=== PATIENT | male | born 1955 | race Caucasian/White ===

== ENCOUNTER 2018-09-19 16:17 | Inpatient (IN) | payer BC, MEDICARE ==
[2018-09-19 18:05] VITALS: BMI 28.8
[2018-09-19] MEDS ORDERED: FLUTICASONE 50MCG/SPRAY NASAL 16GM EA NOSTRIL PRN (19:22)
[2018-09-19] MEDS ORDERED: ACETAMINOPHEN TAB 325 MG TAB PO PRN (19:24)
[2018-09-19] MEDS: ASPIRIN 81 MG PO SCH (19:58)
[2018-09-19] MEDS: clonazePAM 0.5 MG TAB PO PRN (19:59)
[2018-09-19] MEDS: LISINOPRIL-HCTZ 20-12.5 MG 1 EACH TAB PO SCH (20:03)
[2018-09-19] MEDS: CYCLOBENZAPRINE 5 MG TAB PO PRN (20:03)
[2018-09-19 20:21] LABS: Anion Gap 6 mmol/L; Blood Urea Nitrogen 14 mg/dL (9-20); Calcium 9.3 mg/dL (8.4-10.2); Carbon Dioxide 31 mmol/L (22-30); Chloride 102 mmol/L (98-107); Glucose 100 mg/dL (74-99); Potassium 3.8 mmol/L (3.5-5.1); Sodium 139 mmol/L (137-145)
[2018-09-20] MEDS: SODIUM CHLORIDE 0.9% 1,000 ML IV SCH ×3 (03:23→17:19)
[2018-09-20 07:04] LABS: HCT 49.3 % (39.0-53.0); HGB 15.7 gm/dL (13.0-17.5); MCH 29.3 pg (25.0-35.0); MCHC 31.9 g/dL (31.0-37.0); MCV 91.9 fL (80.0-100.0); Mean Platelet Volume 8.3; Platelet Count 229 k/uL (150-450); RBC 5.36 m/uL (4.30-5.90); RDW 14.4 % (11.5-15.5); WBC 5.3 k/uL (3.8-10.6)
[2018-09-20 07:34] LABS: Anion Gap 8 mmol/L; Blood Urea Nitrogen 13 mg/dL (9-20); Calcium 9.2 mg/dL (8.4-10.2); Carbon Dioxide 31 mmol/L (22-30); Chloride 102 mmol/L (98-107); Glucose 97 mg/dL (74-99); Potassium 4.4 mmol/L (3.5-5.1); Sodium 141 mmol/L (137-145)
[2018-09-20] MEDS ORDERED: TEMAZEPAM 15 MG CAP PO PRN (11:34)
[2018-09-20] MEDS ORDERED: NITROGLYCERIN SL TABS 0.4 MG TAB SUBLINGUAL PRN (12:39)
--- NOTE | 2018-09-20 12:41 | P.CRDCN ---
History of Present Illness Consult date: 09/20/18 Requesting physician: Chet Hawkins Consult reason: chest pain Chief complaint: Chest pain History of present illness: This is a pleasant 63-year-old gentleman who has history of hyperte nsion, nondiabetic, unsure about his cholesterol, nonsmoker, who presented to [facility] with symptoms of midsternal chest pressure and heaviness. According to the patient, for the past 3 weeks or so when he exerts himself he gets chest tightness with some radiation up into his jaw. He does get associated shortness of breath as well. He also states that the symptoms come on when he is under a significant amount of stress. He has a very stressful job, and is working to try and change his employment. Patient does take Zestoretic at home, he was noted at [facility] to have a low sodium of 121. Because of the symptoms of chest discomfort and associated hyponatremia patient was recommended to be transferred to [facility] for further evaluation and treatment. EKG performed at [facility] showed a normal sinus rhythm with nonspecific ST-T wave changes in the anterior leads. Chest x-ray did not reveal any abnormality. Sodium there was 121, potassium 3.6, chloride 94, CO2 29, BUN 15 and creatinine 1.1. AST ALT normal BNP normal white blood cell count 8.3, hemoglobin 15.7, platelet count 209. On arrival here and EKG was performed, Which showed a normal sinus rhythm with nonspecific ST-T wave changes in the anterior leads, subsequent EKG showed normal sinus rhythm. Sodium 141, potassium 4.4, BUN 13 and creatinine 0.8. Initial troponin performed here 0.012. White blood cell count 5.3, hemoglobin 15.7, platelet count 229. Blood pressure 132/80 with a heart rate in the 60s to 70s, 99% on room air. At time of my examination this morning, patient is complaining of some mild midsternal chest pressure, we will obtain a repeat EKG at this time and give the patient a sublingual nitroglycerin. Past Medical History Past Medical History: Hypertension, Sleep Apnea/CPAP/BIPAP History of Any Multi-Drug Resistant Organisms: None Reported Past Surgical History: Tonsillectomy Past Anesthesia/Blood Transfusion Reactions: No Reported Reaction Past Psychological History: ADD/ADHD, Depression Smoking Status: Former smoker - Past Family History Father Family Medical History: Dementia Mother Family Medical History: Myocardial Infarction ([place]) Medications and Allergies Home Medications Medication Instructions Recorded Confirmed Type Aspirin EC [Ecotrin Low Dose] 81 mg PO HS 09/19/18 09/19/18 History Cyclobenzaprine [Flexeril] 5 mg PO BID PRN 09/19/18 09/19/18 History Fluticasone Nasal [place] [Flonase 2 spr EA NOSTRIL DAILY PRN 09/19/18 09/19/18 History Nasal [place]] Lisinopril-Hctz 20-12.5 mg 1 tab PO HS 09/19/18 09/19/18 History [Zestoretic 20-12.5] clonazePAM [KlonoPIN] 0.5 mg PO BID PRN 09/19/18 09/19/18 History Allergies Allergy/AdvReac Type Severity Reaction Status Date / Time No Known Allergies Allergy Verified 09/19/18 18:55 Physical Exam Vitals: Vital Signs Temp Pulse Resp BP Pulse Ox 09/20/18 12:00 97.8 F 71 18 135/83 100 09/20/18 08:00 98.0 F 68 18 132/86 99 09/20/18 03:33 97.8 F 72 18 122/77 94 L 09/19/18 23:54 98.2 F 80 18 132/78 96 09/19/18 20:00 96.9 F L 88 18 135/87 97 09/19/18 17:51 68 16 130/86 98 Intake and Output 09/19/18 09/20/18 09/20/18 22:59 06:59 14:59 Output Total 650 Balance -650 Output: Urine 650 Other: # Voids 1 Weight 83.6 kg 83.2 kg PHYSICAL EXAMINATION: GENERAL: 63-year-old gentleman complaining of mild midsternal chest pressure at the time of my examination HEENT: Head is atraumatic, normocephalic. Pupils equal, round. Sclera anicteric. Conjunctiva are clear. Mucous membranes of the mouth are moist. Neck is supple. There is no elevated jugular venous pressure. No carotid bruit is heard. HEART EXAMINATION: Heart S1, S2 normal. No murmur or gallop heard. CHEST EXAMINATION: Lungs are clear to auscultation and precussion. No chest wall tenderness is noted on palpation or with deep breathing. ABDOMEN: Soft, nontender. Bowel sounds are heard. No organomegaly noted. EXTREMITIES: 2+ peripheral pulses with no evidence of peripheral edema and no calf tenderness noted. NEUROLOGIC patient is awake, alert and oriented 3 . Results 09/20/18 06:19 09/20/18 06:19 Cardiac Enzymes 09/20/18 Range/Units 06:19 Troponin I <0.012 (0.000-0.034) ng/mL CBC 09/20/18 Range/Units 06:19 WBC 5.3 (3.8-10.6) k/uL RBC 5.36 (4.30-5.90) m/uL Hgb 15.7 (13.0-17.5) gm/dL Hct 49.3 (39.0-53.0) % Plt Count 229 (150-450) k/uL Comprehensive Metabolic Panel 09/19/18 09/20/18 Range/Units 19:45 06:19 Sodium 139 141 (137-145) mmol/L Potassium 3.8 4.4 (3.5-5.1) mmol/L Chloride 102 102 (98-107) mmol/L Carbon Dioxide 31 H 31 H (22-30) mmol/L BUN 14 13 (9-20) mg/dL Creatinine 0.90 0.86 (0.66-1.25) mg/dL Glucose 100 H 97 (74-99) mg/dL Calcium 9.3 9.2 (8.4-10.2) mg/dL Current Medications Generic Name Dose Route Start Last Admin Trade Name Freq PRN Reason Stop Dose Admin Acetaminophen 650 mg 09/19/18 19:24 09/19/18 19:58 Tylenol Tab PO 650 mg Q6HR PRN Administration Fever and/ or Pain Alprazolam 0.25 mg 09/20/18 11:34 Xanax PO TID PRN Anxiety Aspirin 81 mg 09/19/18 21:00 09/19/18 19:58 Aspirin PO 81 mg HS ALISSA Administration Clonazepam 0.5 mg 09/19/18 19:22 09/19/18 19:59 Klonopin PO 0.5 mg BID PRN Administration Anxiety Cyclobenzaprine HCl 5 mg 09/19/18 19:22 09/19/18 20:03 Flexeril PO 5 mg BID PRN Administration JAW PAIN Fluticasone Propionate 2 spray 09/19/18 19:22 Flonase Nasal [place] EA NOSTRIL DAILY PRN Allergy Symptoms Lisinopril/HCTZ 1 each 09/19/18 21:00 09/19/18 20:03 Zestoretic 20-12.5 PO 1 each HS ALISSA Administration Heparin Sodium (Porcine) 5,000 unit 09/20/18 21:00 Heparin SQ Q12HR ALISSA Sodium Chloride 1,000 mls @ 20 mls/hr 09/19/18 19:30 09/20/18 06:38 Saline 0.9% IV Not Given .Q24H ALISSA Pantoprazole Sodium 40 mg 09/21/18 07:30 Protonix PO AC-BRKFST ALISSA Temazepam 15 mg 09/20/18 11:34 Restoril PO HS PRN Insomnia Intake and Output 09/19/18 09/20/18 09/20/18 22:59 06:59 14:59 Output Total 650 Balance -650 Output: Urine 650 Other: # Voids 1 Weight 83.6 kg 83.2 kg 09/20/18 06:19 09/20/18 06:19 EKG Interpretations (text) EKG showed a normal sinus rhythm with nonspecific ST-T wave changes noted in the anterior leads. Assessment and Plan Plan: Assessment and plan #1 symptoms of exertional dyspnea and midsternal chest pressure and heaviness with radiation to the jaw, suggestive of possible angina. Troponins times to have been negative. EKG shows a normal sinus rhythm with non-specific ST-T wave changes #2 hypertension #3 hyponatremia, could be secondary to diuretics, resolved. Plan We will obtain an echocardiogram with Doppler study. Discontinue diuretic portion of his Zestoretic and continue CHARMAINE inhibitor only. We will also check a fasting lipid profile. Patient has been advised to undergo further testing to rule out underlying coronary artery disease. It is been recommended the patient undergo cardiac catheterization, the risks and the benefits were explained to the patient in detail, patient does not wish to proceed with cardiac catheterization, he prefers to undergo stress testing. He will be scheduled tomorrow to undergo stress Cardiolite understanding that if the stress test is positive he will require cardiac catheterization, if the test is negative he should be able to be discharged from cardiology's perspective tomorrow. DNP note has been reviewed, I agree with a documented findings and plan of care. Patient was seen and examined.
[2018-09-20] MEDS: ALPRAZolam 0.25 MG TAB PO PRN ×2 (12:54→23:06)
[2018-09-20 13:39] LABS: Cholesterol 217 mg/dL (<200); HDL Cholesterol 50 mg/dL (40-60); LDL Cholesterol,Calculated 128 mg/dL (0-99); Triglycerides 194 mg/dL (<150)
--- NOTE | 2018-09-20 16:16 | ECHOF ---
Referral Reason:chf MEASUREMENTS -------- HEIGHT: 170.2 cm WEIGHT: 83.0 kg BP: IVSd: 0.8 cm (0.6 - 1.1) LVIDd: 3.4 cm (3.9 - 5.3) LVPWd: 1.2 cm (0.6 - 1.1) IVSs: 1.6 cm LVIDs: 1.5 cm LVPWs: 1.9 cm RVIDd: 3.2 cm (< 3.3) LAESV Index (A-L): 25.87 ml/m Ao Diam: 3.6 cm (2.0 - 3.7) LA Diam: 2.7 cm (2.7 - 3.8) AV Cusp: 2.4 cm (1.5 - 2.6) EPSS: 0.6 cm MV E Kannan: 0.54 m/s MV DecT: 204 ms MV A Kannan: 0.80 m/s MV E/A Ratio: 0.68 RAP: 5.00 mmHg RVSP: 14.95 mmHg MV EF SLOPE: 50.15 mm/s (70 - 150) MV EXCURSION: 16.31 mm (> 18.000) FINDINGS -------- Sinus rhythm. This was a technically good study. The left ventricular size is normal. There is borderline concentric left ventricular hypertrophy. Overall left ventricular systolic function is normal with, an EF between 55 - 60 %. The right ventricle is normal in size. The left atrial size is normal. The right atrial size is normal. Interatrial and interventricular septum intact. Aortic valve is trileaflet and is mildly thickened. The mitral valve leaflets are mildly thickened. There is trace mitral regurgitation. Trace tricuspid regurgitation present. The right ventricular systolic pressure, as measured by Dopp ler, is 14.95mmHg. There is no pulmonic regurgitation present. The aortic root size is normal. Normal inferior vena cava with normal inspiratory collapse consistent with estimated right atrial pre ssure of 5 mmHg. There is no pericardial effusion. CONCLUSIONS -------- 1. Sinus rhythm. 2. This was a technically good study. 3. The left ventricular size is normal. 4. There is borderline concentric left ventricular hypertrophy. 5. Overall left ventricular systolic function is normal with, an EF between 55 - 60 %. 6. The right ventricle is normal in size. 7. The left atrial size is normal. 8. The right atrial size is normal. 9. Interatrial and interventricular septum intact. 10. Aortic valve is trileaflet and is mildly thickened. 11. The mitral valve leaflets are mildly thickened. 12. There is trace mitral regurgitation. 13. Trace tricuspid regurgitation present. 14. The right ventricular systolic pressure, as measured by Doppler, is 14.95mmHg. 15. There is no pulmonic regurgitation present. 16. The aortic root size is normal. 17. Normal inferior vena cava with normal inspiratory collapse consistent with estimated right atrial pressure of 5 mmHg. 18. There is no pericardial effusion. [employer]: Tatum Grace RDCS
--- NOTE | 2018-09-20 18:06 | HP ---
HISTORY AND PHYSICAL CHIEF COMPLAINT: Shortness of breath, chest pain. HISTORY OF PRESENT ILLNESS: This 63-year-old gentleman with a past medical history of hypertension, sleep apnea, history of ADD, ADHD, history of depression being followed by primary physician elsewhere has presented to [facility] with complaints of increasing shortness of breath and chest pain which is occurring for the last 1 week. The pain was felt in the anterior part of the chest which was radiating to the left side of the chest, according to him and evaluation in [place] showed some nonspecific ST-T changes. The patient directly transferred to [facility] for further evaluation and treatment. 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 There is no history of fever, rigors or chills. No history of headache, loss of consciousness, seizures. Cardiology evaluation in progress. PAST MEDICAL HISTORY: Hypertension, sleep apnea, history of tonsillectomy, ADHD, history of depression, history of smoking. MEDICATIONS: Home medications are prior to admission: 1. Klonopin 0.5 mg b.i.d. p.r.n. 2. Lisinopril, hydrochlorothiazide 1 tablet p.o. q.h.s. 3. Flonase 2 sprays daily p.r.n. 4. Flexeril 5 mg b.i.d. p.r.n. 5. Ecotrin 81 mg q.h.s. ALLERGIES: None. FAMILY HISTORY: History of dementia in the family. SOCIAL HISTORY: Previous history of smoking. No history of alcohol intake. REVIEW OF SYSTEMS: ENT: No diminished hearing, no diminished vision. CARDIOVASCULAR: As mentioned earlier. RESPIRATORY: As mentioned earlier. GI no nausea or vomiting. no dysuria or hematuria. NERVOUS SYSTEM: No numbness or weakness. ALLERGY/IMMUNOLOGY: No asthma or hayfever. MUSCULOSKELETAL as mentioned earlier. HEMATOLOGY/ONCOLOGY: No history of anemia. ENDOCRINE: No history of diabetes or hypothyroidism. CONSTITUTIONAL: As mentioned earlier. Dermatology: Negative. Rheumatology: Negative. Psychiatry: As mentioned earlier. PHYSICAL EXAMINATION: GENERAL: Alert and oriented x3. VITAL SIGNS: Pulse 71, blood pressure 135/83, respirations 18, temperature 97.8, pulse ox 100 percent on 2 L. HEENT: Conjunctivae normal. NECK: No jugular venous distention. CARDIOVASCULAR: S1, S2 muffled. RESPIRATORY: Breath sounds diminished in the bases. No rhonchi. No crackles. ABDOMEN: Soft, nontender. No mass palpable. LEGS: No edema. No swelling. NERVOUS SYSTEM: Higher functions as mentioned earlier. Moves all 4 limbs. No focal motor or sensory deficits. Lymphatics: No lymph nodes palpable in the neck, axillae or groin. SKIN: No ulcer, rash or bleeding. JOINTS: No active deforming arthropathy. LABS: CBC within normal limits. Otherwise sodium 140, potassium 4.4, triglycerides 194, cholesterol 217. ASSESSMENT: 1. Chest pain, possible unstable angina. 2. Shortness of breath for evaluation. 3. Hyperlipidemia. 4. Hypertension. 5. Sleep apnea. 6. Attention-deficit/hyperactivity disorder. 7. Depression. 8. Social stressors. 9. History of nicotine dependence. RECOMMENDATIONS AND DISCUSSION: In this 63-year-old gentleman who presented with multiple complex medical issues, we will monitor the patient closely. Continue the current medications, management and symptomatic treatment. Rule out myocardial infarction. Otherwise, the patient has some persistent chest pain history. Cardiology consult for cardiac catheterization. We will continue to monitor. A 2D echo has been ordered. Overall prognosis guarded because of multiple complex medical issues. Repeat labs also will be ordered and further recommendations to follow. MMODL / IJN: [id number] / MTDD
[2018-09-20 18:54] LABS: Appearance,Urine Clear (Clear); Bilirubin,Urine Negative (Negative); Blood,Urine Negative (Negative); Color,Urine Yellow; Glucose,Urine (UA) Negative (Negative); Ketones,Urine Negative (Negative); Leukocyte Esterase,Urine Negative (Negative); Nitrite,Urine Negative (Negative); Protein,Urine Negative (Negative); Specific Gravity,Urine 1.015 (1.001-1.035); Urobilinogen,Urine <2.0 mg/dL (<2.0)
[2018-09-20] MEDS: ASPIRIN 81 MG PO SCH (20:29)
[2018-09-20] MEDS: HEPARIN SODIUM,PORCINE 5,000 UNIT/ML 1 ML VIAL SQ SCH (20:29)
[2018-09-20] MEDS: LISINOPRIL-HCTZ 20-12.5 MG 1 EACH TAB PO SCH (20:29)
[2018-09-20 21:18] VITALS: RESP 18
[2018-09-20] MEDS: CYCLOBENZAPRINE 5 MG TAB PO PRN (23:06)
[2018-09-21] MEDS ORDERED: PANTOPRAZOLE 40 MG TABLET PO SCH (07:30)
[2018-09-21 07:44] LABS: Basophils % (A) 1 %; Eosinophils # (A) 0.3 k/uL (0-0.7); Eosinophils % (A) 5 %; HGB 15.5 gm/dL (13.0-17.5); Lymphocytes # (A) 1.6 k/uL (1.0-4.8); Lymphocytes % (A) 28 %; MCH 29.3 pg (25.0-35.0); MCHC 31.6 g/dL (31.0-37.0); MCV 92.6 fL (80.0-100.0); Mean Platelet Volume 8.4; Monocytes # (A) 0.5 k/uL (0-1.0); Monocytes % (A) 8 %; Neutrophils % (A) 53 %; Platelet Count 211 k/uL (150-450); RDW 14.6 % (11.5-15.5); WBC 5.6 k/uL (3.8-10.6)
[2018-09-21 07:55] LABS: Anion Gap 8 mmol/L; Blood Urea Nitrogen 17 mg/dL (9-20); Calcium 9.6 mg/dL (8.4-10.2); Carbon Dioxide 27 mmol/L (22-30); Chloride 103 mmol/L (98-107); Glucose 98 mg/dL (74-99); Potassium 4.5 mmol/L (3.5-5.1); Sodium 138 mmol/L (137-145)
[2018-09-21] MEDS: HEPARIN SODIUM,PORCINE 5,000 UNIT/ML 1 ML VIAL SQ SCH (08:03)
[2018-09-21] MEDS: CYCLOBENZAPRINE 5 MG TAB PO PRN (12:52)
[2018-09-21] MEDS: clonazePAM 0.5 MG TAB PO PRN (12:52)
--- NOTE | 2018-09-21 13:07 | P.PN ---
Subjective Progress Note Date: 09/21/18 This is a pleasant 63-year-old gentleman who has history of hypertension, nondiabetic, unsure about his cholesterol, nonsmoker, who presented to [facility] with symptoms of midsternal chest pressure and heaviness. According to the patient, for the past 3 weeks or so when he exerts himself he gets chest tightness with some radiation up into his jaw. He does get associated shortness of breath as well. He also states that the symptoms come on when he is under a significant amount of stress. He has a very stressful job, and is working to try and change his employment. Patient does take Zestoretic at home, he was noted at [facility] to have a low sodium of 121. Because of the symptoms of chest discomfort and associated hyponatremia patient was recommended to be transferred to [facility] for further evaluation and treatment. EKG performed at [facility] showed a normal sinus rhythm with nonspecific ST-T wave changes in the anterior leads. Chest x- ray did not reveal any abnormality. Sodium there was 121, potassium 3.6, chloride 94, CO2 29, BUN 15 and creatinine 1.1. AST ALT normal BNP normal white blood cell count 8.3, hemoglobin 15.7, platelet count 209. On arrival here and EKG was performed, Which showed a normal sinus rhythm with nonspecific ST-T wave changes in the anterior leads, subsequent EKG showed normal sinus rhythm. Sodium 141, pota ssium 4.4, BUN 13 and creatinine 0.8. Initial troponin performed here 0.012. White blood cell count 5.3, hemoglobin 15.7, platelet count 229. Blood pressure 132/80 with a heart rate in the 60s to 70s, 99% on room air. At time of my examination this morning, patient is complaining of some mild midsternal chest pressure, we will obtain a repeat EKG at this time and give the patient a sublingual nitroglycerin. 09/21/2018 Patient seen and examined this morning, he was advised yesterday by Dr. Doyle to undergo cardiac catheterization, he was hesitant but agreed to have a stress test. A nuclear stress test was ordered for him today, patient refuses to have nuclear agent. Patient then was scheduled to undergo a stress echocardiographic study which will be performed today. Hemodynamically he is stable. Denies any further chest discomfort. Echocardiogram with Doppler study was performed which revealed an EF of 55-60%. Cholesterol 217, LDL 128, HDL 50, triglycerides 194. Objective - Vital Signs Vital signs: Vital Signs Temp 98.2 F 09/21/18 08:07 Pulse 72 09/21/18 08:07 Resp 18 09/21/18 08:07 BP 123/84 09/21/18 08:07 Pulse Ox 98 09/21/18 08:07 Intake & Output 09/20/18 09/21/18 09/21/18 18:59 06:59 18:59 Intake Total 240 480 Balance 240 480 Weight 83.3 kg 83.007 kg Intake: Oral 240 480 Other: # Voids 1 1 2 - Exam PHYSICAL EXAMINATION: GENERAL: 63-year-old gentleman complaining of mild midsternal chest p ressure at the time of my examination HEENT: Head is atraumatic, normocephalic. Pupils equal, round. Sclera anicteric. Conjunctiva are clear. Mucous membranes of the mouth are moist. Neck is supple. There is no elevated jugular venous pressure. No carotid bruit is heard. HEART EXAMINATION: Heart S1, S2 normal. No murmur or gallop heard. CHEST EXAMINATION: Lungs are clear to auscultation and precussion. No chest wall tenderness is noted on palpation or with deep breathing. ABDOMEN: Soft, nontender. Bowel sounds are heard. No organomegaly noted. EXTREMITIES: 2+ peripheral pulses with no evidence of peripheral edema and no calf tenderness noted. NEUROLOGIC patient is awake, alert and oriented 3 - Labs CBC & Chem 7: 09/21/18 06:47 09/21/18 06:47 Labs: Abnormal Lab Results - Last 24 Hours (Table) 09/20/18 Range/Units 06:19 Triglycerides 194 H (<150) mg/dL Cholesterol 217 H (<200) mg/dL LDL Cholesterol, Calc 128 H (0-99) mg/dL Assessment and Plan Plan: Assessment and plan #1 symptoms of exertional dyspnea and midsternal chest pressure and heaviness with radiation to the jaw, suggestive of possible angina. Troponins times to have been negative. EKG shows a normal sinus rhythm with non-specific ST-T wave changes #2 hypertension #3 hyponatremia, could be secondary to diuretics, resolved. #4 hyperlipidemia, untreated Plan Echocardiogram with Doppler study revealed a normal left ventricular systolic function , cholesterol 217, LDL 128, triglycerides 194, HDL 50. Patient on Lipitor 40 today. Await results of stress echocardiographic study. If the stress test is normal patient may be able to be discharged home today. If he has a positive stress test further recommendations then will be made. DNP note has been reviewed, I agree with a documented findings and plan of care. Patient was seen and examined.
--- NOTE | 2018-09-21 13:12 | ECHOS ---
STRESS ECHOCARDIOGRAM INDICATIONS: Chest pain. MEDICATIONS: Flexeril, Zestoretic, aspirin, Flonase, Klonopin BASELINE HEART RATE: 68 BASELINE BLOOD PRESSURE: 120/74 MAXIMUM HEART RATE: 150 MAXIMUM BLOOD PRESSURE: 224/97 85% MPHR: 132 100% MPHR: 155 METS: 11.7 MAXIMUM STAGE REACHED: IV TOTAL EXERCISE TIME: 10:01 CLINICAL INFORMATION: Baseline EKG revealed normal sinus rhythm with isolated PACs and some baseline artifact. Patient walked for 10 minutes on a standard Yoel protocol. Maximal heart rate was 150 beats per minute well above 85% of predicted maximal. He complained of some right-sided atypical chest pain. EKG did not reveal any ST-segment changes to indicate ischemia. The PVCs improved with exercise came back with isolated PVC in recovery. This is a negative stress test with good exercise capacity. Baseline echo images revealed normal wall motion and wall thickening of all segments. At peak exercise there was good augmentation of left ventricular wall motion and wall thickening of all segments suggesting that there is no evidence of stress-induced ischemia on this study. IMPRESSION: 1. Negative stress test with good exercise capacity. 2. Normal stress echocardiogram. MMODL / IJN: [id number] /
[2018-09-21] MEDS ORDERED: ATORVASTATIN 40 MG TAB PO SCH (13:15)
--- NOTE | 2018-09-21 13:56 | P.DS ---
Providers Date of admission: 09/19/18 17:50 Expected date of discharge: 09/21/18 Attending physician: Deven Ye Consults: 09/19/18 19:23 Consult Physician Routine Consulting Provider: Troy Back Consult Reason/Comments: chest pain Do you want consulting provider notified?: Yes, Notify in am Primary care physician: Stated None Hospital Course: 63-year-old gentleman who has history of hypertension, nondiabetic, unsure about his cholesterol, nonsmoker, who presented to [facility] with symptoms of midsternal chest pressure and heaviness. According to the patient, for the past 3 weeks or so when he exerts himself he gets chest tightness with some radiation up into his jaw. He does get associated shortness of breath as well. He also states that the symptoms come on when he is under a significant amount of stress. He has a very stressful job, and is working to try and change his employment. Patient does take Zestoretic at home, he was noted at [facility] to have a low sodium of 121. Because of the symptoms of chest discomfort and associated hyponatremia patient was recommended to be transferred to [facility] for further evaluation and treatment. EKG performed at [facility] showed a normal sinus rhythm with nonspecific ST-T wave changes in the anterior leads. Chest x-ray did not reveal any abnormality. Sodium there was 121, potassium 3.6, chloride 94, CO2 29, BUN 15 and creatinine 1.1. AST ALT normal BNP normal white blood cell count 8.3, hemoglobin 15.7, platelet count 209. On arrival here and EKG was performed, Which showed a normal sinus rhythm with nonspecific ST-T wave changes in the anterior leads, subsequent EKG showed normal sinus rhythm. Sodium 141, potassium 4.4, BUN 13 and creatinine 0.8. Initial troponin performed here 0.012. White blood cell count 5.3, hemoglobin 15.7, platelet count 229. Blood pressure 132/80 with a heart rate in the 60s to 70s, 99% on room air. At time of my examination this morning, patient is complaining of some mild midsternal chest pressure, we will obtain a repeat EKG at this time and give the patient a sublingual nitroglycerin. 09/21/2018 Patient seen and examined this morning, he was advised yesterday by Dr. Doyle to undergo cardiac catheterization, he was hesitant but agreed to have a stress test. A nuclear stress test was ordered for him today, patient refuses to have nuclear agent. Patient then was scheduled to undergo a stress echocardiographic study which is unremarkable. Hemodynamically he is stable. Denies any further chest discomfort. Echocardiogram with Doppler study was performed which revealed an EF of 55-60%. Cholesterol 217, LDL 128, HDL 50, triglycerides 194. Cardiology recommending to continue with Lipitor 40 mg daily at bedtime; patient will be discharged home to follow-up with cardiology and PCP as outpatient Plan - Discharge Summary Discharge Rx Participant: No New Discharge Prescriptions: New Atorvastatin [Lipitor] 40 mg PO DAILY #30 tab Continue clonazePAM [KlonoPIN] 0.5 mg PO BID PRN PRN Reason: Anxiety Fluticasone Nasal [place] [Flonase Nasal [place]] 2 spr EA NOSTRIL DAILY PRN PRN Reason: Allergy Symptoms Aspirin EC [Ecotrin Low Dose] 81 mg PO HS Lisinopril-Hctz 20-12.5 mg [Zestoretic 20-12.5] 1 tab PO HS Cyclobenzaprine [Flexeril] 5 mg PO BID PRN PRN Reason: JAW PAIN Discharge Medication List Aspirin EC [Ecotrin Low Dose] 81 mg PO HS 09/19/18 [History] Cyclobenzaprine [Flexeril] 5 mg PO BID PRN 09/19/18 [History] Fluticasone Nasal [place] [Flonase Nasal [place]] 2 spr EA NOSTRIL DAILY PRN 09/19/18 [History] Lisinopril-Hctz 20-12.5 mg [Zestoretic 20-12.5] 1 tab PO HS 09/19/18 [History] clonazePAM [KlonoPIN] 0.5 mg PO BID PRN 09/19/18 [History] Atorvastatin [Lipitor] 40 mg PO DAILY #30 tab 09/21/18 [Rx] Follow up Appointment(s)/Referral(s): Troy Back MD [STAFF PHYSICIAN] - 10/11/18 1:30 pm None,Stated [Primary Care Provider] - 1 Week (Please call your insurance to find primary physicians in your coverage. ) Patient Instructions/Handouts: Chest Pain (DC), Nuclear Stress Test (DC) Discharge Disposition: HOME SELF-CARE
[2018-09-21 14:00] VITALS: BP 122/77; PULSE 96; TEMP 98.1
== END 2018-09-21 15:38 | disposition home or self-care (01) | DRG 311 ==
LOC: 3SCARD 17:50
PROVIDERS: ADMIT Internal Medicine; ATTEND Internal Medicine
DX: I20.0 Unstable angina (principal); E87.1 Hypo-osmolality and hyponatremia; E78.5 Hyperlipidemia, unspecified; F32.9 Major depressive disorder, single episode, unspecified; G47.30 Sleep apnea, unspecified; I10 Essential (primary) hypertension; Z82.49 Family history of ischemic heart disease and other diseases of the circulatory system; Z87.891 Personal history of nicotine dependence; Z99.89 Dependence on other enabling machines and devices; Z79.82 Long term (current) use of aspirin; Z79.51 Long term (current) use of inhaled steroids; Z79.899 Other long term (current) drug therapy; F41.9 Anxiety disorder, unspecified; Z56.3 Stressful work schedule
CPT/HCPCS: 80048; 80061; 81003; 83880; 84484; 85025; 85027; 93306; 93351; 94760

== ENCOUNTER → 2018-09-26 | Outpatient (CLI) | payer BC ==
--- NOTE | 2018-09-26 19:10 | CONS ---
CONSULTATION DATE OF SERVICE: 09/26/2018 63-year-old gentleman has been evaluated in the sleep center for possible obstructive sleep apnea-hypopnea syndrome. HISTORY OF PRESENT ILLNESS/SLEEP WAKE EVALUATION: SLEEP SCHEDULE: Patient usual sleep schedule working days from about 10 p.m. until 5:30 to 5:45 a.m. and on weekends from about 11:30 p.m. to 7:45 am. FALLING ASLEEP: Usually no problems with falling asleep although patient has TV set in bedroom. DURING SLEEP: He sleeps in different positions, including back and side including with his , he has loud snoring and witnessed episodes of stopped breathing during the sleep. He also grinding teeth at night. DURING THE DAY/SLEEP WAKE EVALUATION: In the morning he wakes up tired. Has difficulties to pay attention, has episodes of irritability, depression, anxiety and claustrophobia. [place] Sleepiness Scale increased to 9. The patient usually does not take naps during the night. No history of hypnagogic hallucinations, sleep paralysis or cataplexy. PAST MEDICAL HISTORY: Positive for hypertension, hyperlipidemia, episodes of anxiety and panic attacks. Rhinitis, TMJ problems. PAST SURGICAL HISTORY: Tonsillectomy. MEDICATIONS: Atorvastatin, aspirin, Flexeril, fluticasone spray, lisinopril, hydrochlorothiazide, clonazepam on a p.r.n. basis, usually patient takes it in the evening. SOCIAL HISTORY: Negative for smoking. Alcohol consumption occasional. FAMILY HISTORY: Hypertension, headaches. REVIEW OF SYSTEMS: Awakenings from sleep. Tiredness and sleepiness during the day, episodes of anxiety and depression. PHYSICAL EXAM: gentleman without distress. BP 144/93, HR 82, RR 16, height 5 feet 7 inches, weight 184 pounds. Body mass index 28.8, temperature 98.3, oxygen saturation on room air 98%. HEENT: Oropharynx extremely low position of soft palate, Mallampati 3-4. Restriction of nasal breathing. NECK: 15-1/2 inches in circumference. Neck Supple, no JVD. Thyroid is not palpable. LUNGS Clear to percussion and to auscultation. Good air exchange. No wheezing or rhonchi. HEART S1, S2 regular. No murmurs, gallops, or rubs. ABDOMEN : Soft and nontender. Bowel sounds are present. No organomegaly appreciated. EXTREMITIES No clubbing or cyanosis. 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 Cranial nerves 2 to 7 intact. There is no fasciculation or atrophy. noted. No focal deficits observed. IMPRESSION: 1. Snoring witnessed episodes of stopped breathing during the sleep. Low position of soft palate, excessive daytime sleepiness, obstructive sleep apnea-hypopnea syndrome. 2. Hypertension. 3. Hyperlipidemia. 4. History of rhinitis. 5. History of anxiety and panic attacks. 6. History of TMJ problems. 7. Status post tonsillectomy. PLAN: 1. Home sleep apnea test by the requirements of [facility]. 2. CPAP/BiPAP titration if sleep study confirms obstructive sleep apnea-hypopnea syndrome. 3. Preferable position during sleep on the side. 4. No driving if patient feels any sleepiness. 5. I will see patient for follow up visit to explain results of testing and following plan. Thank you very much for referring this patient for consultation. Sincerely, Chapin Guillory MD, PhD, FAASM Diplomat of [place] [employer] [place] [employer] Cardiopulmonary Technician [facility] [place] MMODL / TARIQN: [id number] /
== END | disposition home or self-care (01) ==
LOC: SLEEP 15:23
PROVIDERS: ATTEND Internal Medicine
DX: G47.33 Obstructive sleep apnea (adult) (pediatric) (principal); I10 Essential (primary) hypertension; E78.5 Hyperlipidemia, unspecified; Z87.09 Personal history of other diseases of the respiratory system; Z86.59 Personal history of other mental and behavioral disorders; Z87.39 Personal history of other diseases of the musculoskeletal system and connective tissue; Z90.09 Acquired absence of other part of head and neck
CPT/HCPCS: 99211

== ENCOUNTER → 2018-10-31 | Outpatient (CLI) | payer BC ==
[2018-10-31 14:43] LABS: HGB 15.6 gm/dL (13.0-17.5); MCH 29.1 pg (25.0-35.0); MCHC 31.9 g/dL (31.0-37.0); MCV 91.4 fL (80.0-100.0); Mean Platelet Volume 8.3; Platelet Count 198 k/uL (150-450); RBC 5.36 m/uL (4.30-5.90); RDW 13.4 % (11.5-15.5); WBC 5.2 k/uL (3.8-10.6)
[2018-10-31 14:54] LABS: African American GFR (CKD) >90 (>60 ml/min/1.73 sqM); Anion Gap 9 mmol/L; Blood Urea Nitrogen 19 mg/dL (9-20); Carbon Dioxide 29 mmol/L (22-30); Chloride 100 mmol/L (98-107); Potassium 4.4 mmol/L (3.5-5.1); Sodium 138 mmol/L (137-145)
== END | disposition home or self-care (01) ==
LOC: LABPAT 14:05
PROVIDERS: ATTEND Internal Medicine Interventional Cardiology
DX: Z01.812 Encounter for preprocedural laboratory examination (principal); R07.9 Chest pain, unspecified
CPT/HCPCS: 36415; 80051; 82565; 84520; 85027

== ENCOUNTER → 2018-12-08 | Day surgery (SDC) | payer BC ==
[2018-12-07 08:57] VITALS: BMI 29.0
[~2018-12-08] MED LIST: GLYCOPYRROLATE 0.2 MG/ML 2 ML VIAL ONE; LACTATED RINGERS 1,000 ML IV SCH; LIDOCAINE 1% 20 ML VIAL (10MG/ML) FOR IV START INTRADERMA PRN; LIDOCAINE 1% INJ 10MG/ML (20 ML MDV) ONE; PROPOFOL 10 MG/ML 20 ML VIAL IV ONE
[2018-12-08 10:36] VITALS: TEMP 97.9
--- NOTE | 2018-12-08 11:47 | P.PCN ---
Date of Procedure: 12/08/18 Procedure(s) Performed: Brief history: Patient is a pleasant 63-year-old pleasant white male scheduled for an elective upper endoscopy as well as colonoscopy as a part of evaluation of atypical chest pain/GERD and screening for colon cancer Procedure performed: Esophagogastroduodenoscopy biopsy Colonoscopy with snare polypectomy Preoperative diagnosis: Atypical chest pain/GERD Screening for colon cancer Anesthesia: MAC Procedure: After informed consent was obtained from the patient was brought into the endoscopy unit and IV sedation was administered by anesthesia under continuous monitoring. Initially upper endoscopy was done. The Olympus GF 160 video endoscope was inserted inserted into the mouth and esophagus intubated without any difficulty and was gradually advanced into the stomach and duodenum and carefully examined. The bulb and second part of the duodenum appeared normal. The scope was then withdrawn into the stomach adequately insufflated with air and upon careful examination the antrum had mild gastritis and biopsies were done from this area. The body, cardia and fundus appeared normal. The scope was then withdrawn into the esophagus. The GE junction was located at 40 cm to the incisors. It appeared regular with no erythema erosions or ulcerations. Biopsies were done from the distal esophagus.Rest of the esophagus appeared normal. Patient tolerated the procedure well. At this time the patient continued to remain sedation. Initial digital rectal examination was normal. Olympus CF 160 video colonoscope was then inserted into the rectum and gradually advanced to the cecum without any difficulty. Careful examination was performed as the scope was gradually being withdrawn. The prep was excellent. The cecum, ascending colon, transverse colon, descending colon, sigmoid colon and rectum appeared normal. Retroflexion was performed in the rectum and no lesions were noted. Patient tolerated the procedure well. Impression: 1. Upper endoscopy revealed mild antral gastritis but no evidence of esophagitis 2. Colonoscopy revealed 5-6 mm sessile hepatic flexure polyp status post polypectomy. Recommendations: Findings of this examination were discussed with the patient as well as his family. He was advised to follow with the biopsy results. If the biopsy of the colon polyp shows an adenoma, he can have a repeat colonoscopy in 5 years. In the past the gastroesophageal reflux symptoms/atypical chest pain, he was advised to continue with Protonix 40 mg daily and follow antireflux measures.
[2018-12-08 11:49] VITALS: RESP 17
[2018-12-08 12:12] VITALS: BP 130/58; PULSE 70
== END | disposition home or self-care (01) ==
LOC: ORWHC2ENDO 10:22
PROVIDERS: ATTEND Internal Medicine Gastroenterology
DX: Z12.11 Encounter for screening for malignant neoplasm of colon (principal); K29.50 Unspecified chronic gastritis without bleeding; K62.5 Hemorrhage of anus and rectum; I10 Essential (primary) hypertension; K21.9 Gastro-esophageal reflux disease without esophagitis; F90.9 Attention-deficit hyperactivity disorder, unspecified type; G47.33 Obstructive sleep apnea (adult) (pediatric); Z87.891 Personal history of nicotine dependence; E78.5 Hyperlipidemia, unspecified; I20.9 Angina pectoris, unspecified; Z79.82 Long term (current) use of aspirin; Z79.899 Other long term (current) drug therapy; Z79.51 Long term (current) use of inhaled steroids
CPT/HCPCS: 88305; 45385; 43239; J2001; J2704

== ENCOUNTER 2018-12-13 | Emergency (ER) | payer BC ==
--- NOTE | 2018-12-13 15:59 | ED ---
General Adult HPI - General Chief complaint: Skin/Abscess/Foreign Body Stated complaint: Reaction to IV a week ago Time Seen by Provider: 12/13/18 15:19 Source: patient Mode of arrival: ambulatory Limitations: no limitations - History of Present Illness Initial comments: Patient is 63-year-old male presenting to emergency Department with an IV site reaction. Patient is concerned about a possible infection at the IV site. Patient reports no pain at the site. Patient does report mild edema and small area of ecchymosis that has recently developed but no erythema. Patient reports full range of motion in his elbow elbow. Patient denies any discharge at the IV site. Patient reports the medical staff did not have any difficulty placing or removing the IV. Patient has no other complaints. - Related Data Home Medications Medication Instructions Recorded Confirmed Aspirin EC [Ecotrin Low Dose] 81 mg PO HS 09/19/18 12/07/18 Fluticasone Nasal [employer] [Flonase 2 spr EA NOSTRIL DAILY PRN 09/19/18 12/08/18 Nasal [employer]] Lisinopril-Hctz 20-12.5 mg 1 tab PO HS 09/19/18 12/08/18 [Zestoretic 20-12.5] clonazePAM [KlonoPIN] 0.5 mg PO BID PRN 09/19/18 12/08/18 Allergies Allergy/AdvReac Type Severity Reaction Status Date / Time No Known Allergies Allergy Verified 12/13/18 15:13 Review of Systems ROS Statement: Those systems with pertinent positive or pertinent negative responses have been documented in the HPI. ROS Other: All systems not noted in ROS Statement are negative. Past Medical History Past Medical History: Cancer, Chest Pain / Angina, Hypertension, Sleep Apnea/CPAP/BIPAP Additional Past Medical History / Comment(s): has cpap, squamous cell skin cancer History of Any Multi-Drug Resistant Organisms: None Reported Past Surgical History: Tonsillectomy Additional Past Surgical History / Comment(s): squamous cell skin cancer removed from forehead Past Anesthesia/Blood Transfusion Reactions: No Reported Reaction Past Psychological History: ADD/ADHD Smoking Status: Former smoker Past Alcohol Use History: None Reported Past Drug Use History: None Reported - Past Family History Father Family Medical History: Cancer, Dementia Additional Family Medical History / Comment(s): prostate cancer Mother Family Medical History: Myocardial Infarction ([place]) General Exam - General Exam Comments Initial Comments: General: Well-developed well-nourished distress HEENT: Normocephalic/atraumatic, PERLL, pharynx erythema, swallowing well, EAC no erythema, no exudates, TM clear, no cervical lymph nodes Neck: Supple, nontender, trachea midline Chest/Lungs: Normal respirations, no signs of respiratory distress clear to auscultation bilaterally no wheezes, rales, rhonchi Cardiac: Regular rate and rhythm, normal S1-S2, no murmurs rubs or gallops Abdomen/GI: Soft nontender, bowel sounds equal or quadrant x4, no guarding, no rebound no CVA tenderness Musculoskeletal: Mild edema in the right cubital region, 2 cm x 2 cm region of ecchymosis, no erythema noted, no induration, no discharge. Skin: Warmth, no rashes or lesions, no cyanosis or diaphoresis Neurologic: AAO x 3, CN 2-12 intact, Psychiatric: Mood and affect normal, judgment normal Limitations: no limitations Course Vital Signs 12/13/18 15:14 Temperature 97.9 F Pulse Rate 65 Respiratory 16 Rate Blood Pressure 129/81 O2 Sat by Pulse 99 Oximetry Medical Decision Making - Medical Decision Making Patient is 63-year-old male presenting to emergency Department with a reaction to an IV site. Based on physical examination the patient appears to have developed a hematoma from the IV site. I see any signs of infection. Patient was offered a Doppler ultrasound but he declined. I advised the patient to keep warm compresses in the area to minimize the symptoms. Patient advised to follow with primary care. Strict return parameters were thoroughly discussed the patient was understanding and agreeable. Case discussed with physician. Disposition Clinical Impression: Hematoma of IV site Disposition: HOME SELF-CARE Condition: Stable Instructions (If sedation given, give patient instructions): Hematoma (ED) Additional Instructions: Please keep warm compresses at the IV site. Please monitor area for signs of infection as discussed. Please follow with primary care. Please return to em ergency department if symptoms worsen. Is patient prescribed a controlled substance at d/c from ED?: No Referrals: Nonstaff,Physician [Primary Care Provider] - 1-2 days Time of Disposition: 15:59
== END 2018-12-13 16:15 | disposition home or self-care (01) ==
CPT/HCPCS: 99283

== ENCOUNTER → 2018-12-13 | Outpatient (CLI) | payer BC ==
--- NOTE | 2018-12-13 16:34 | PN ---
PROGRESS NOTE DATE OF SERVICE: 12/13/2018 63-year-old gentleman has been followed in Sleep Center for treatment of obstructive sleep apnea-hypopnea syndrome. Recently patient had a home sleep apnea test which showed apnea-hypopnea index 15.3. Subsequently, patient was started on treatment with auto PAP. In today's his first visit after he received CPAP unit. I discussed results of sleep study with patient. He feels better while he is using his CPAP but feels discomfort in his nose. I checked CPAP unit, range of the pressure 5-20, average pressure 10.1. Leak is slightly higher than it should be 31 L/minute. Apnea-hypopnea index 2.1. Patient using nasal pillows AirFit P10. [place] Sleepiness Scale today is 12. I checked the patient CPAP unit, range of the pressure 5-20, average pressure 10.1. Apnea-hypopnea index reading only 2.1, which is normal. Leak is 31 L/minute. MEDICATIONS: Aspirin, lisinopril, clonazepam and Protonix. PHYSICAL EXAMINATION: During physical exam, patient in no distress BP 123/66, HR 70, RR 16, weight 188 pounds. Temp 97.4 oxygen saturation at room air 98%. HEENT: Oropharynx low position of soft palate, Mallampati 4. Neck Supple, no JVD. Thyroid is not palpable. LUNGS Clear to percussion and to auscultation. Good air exchange. No wheezing or rhonchi. HEART S1, S2 regular. No murmurs, gallops, or rubs. ABDOMEN: Soft and nontender. Bowel sounds are present. No organomegaly appreciated. EXTREMITIES: No clubbing or cyanosis. 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 Cranial nerves 2 to 7 intact. There is no fasciculation or atrophy. noted. No focal deficits observed. IMPRESSION: Moderate obstructive sleep apnea-hypopnea syndrome by results of home sleep apnea test which may underestimate the severity of sleep apnea in the patient demonstrated good compliance with treatment benefitting from treatment. PLAN: 1. I will decrease maximal pressure down to 13. 2. Patient will continue to use equipment every night for the whole night. 3. Prescription for chin strap. 4. Sleep hygiene with regular time in bed for 7.5 hours. 5. No driving if feeling sleepiness. Thank you very much for allowing me to participate in the management of your patient. Sincerely, Chapin Stefadu, MD, PhD, FAASM Diplomat of [place] [employer] [employer] [facility] [place] MMODL / TARIQN: [id number] /
== END | disposition home or self-care (01) ==
LOC: SLEEP 13:31
PROVIDERS: ATTEND Internal Medicine
DX: G47.33 Obstructive sleep apnea (adult) (pediatric) (principal); Z99.89 Dependence on other enabling machines and devices; Z79.82 Long term (current) use of aspirin; Z79.899 Other long term (current) drug therapy